=== PATIENT | male | born 1975 | race Caucasian/White ===

== ENCOUNTER 2018-10-03 12:56 | Emergency (ER) | payer OTHER ==
[~2018-10-03] VITALS: Ht 177.8 cm; Wt 99.8 kg
[~2018-10-03 12:56] MED LIST: CITRATE OF MAG296 ML PO; HYDROCODON-ACE1 EACH PO; XANAX XR2 MG
[2018-10-03] MEDS ORDERED: TRAMADOL 50 MG50 MG PO (13:53)
[2018-10-03] MEDS ORDERED: IBUPROFEN 800800 M1 PO (13:53)
[2018-10-03 14:13] VITALS: BP 120/77
== END 2018-10-03 14:14 | disposition home or self-care (01) ==
LOC: M.ERS 12:56
DX: S93.602A Unspecified sprain of left foot, initial encounter (principal); Z88.1 Allergy status to other antibiotic agents; Z88.2 Allergy status to sulfonamides; X50.3XXA Overexertion from repetitive movements, initial encounter; Y93.89 Activity, other specified; Y92.89 Other specified places as the place of occurrence of the external cause; Y99.8 Other external cause status

== ENCOUNTER 2021-06-12 11:04 | Emergency (ER) | payer OTHER ==
[~2021-06-12] VITALS: Ht 175.3 cm; Wt 68.0 kg
[~2021-06-12 11:04] MED LIST changes: +IBUPROFEN 800800 M1 PO; +TRAMADOL 50 MG50 MG PO
[2021-06-12] MEDS ORDERED: ADDERALL XR 1010 MG PO (11:20)
[2021-06-12 11:37] LABS: ABSOLUTE BASOPHILS 0.1 thou/uL (0.0-0.2); ABSOLUTE LYMPHOCYTES 2.6 thou/uL (0.8-5.3); ABSOLUTE MONOCYTES 0.7 thou/uL (0.0-1.2); ABSOLUTE NEUTROPHILS 7.3 thou/uL (1.6-8.1); BASOPHILS 0.6 %; EOSINOPHILS 0.1 %; HEMATOCRIT 43.5 % (42.0-52.0); HEMOGLOBIN 15.3 gm/dL (14.0-18.0); LYMPHOCYTES 24.8 %; MCH 30.3 pg (26.0-34.0); MCHC 35.2 g/dL (28.0-37.0); MONOCYTES 6.3 %; MPV 7.2 fl. (7.2-11.1); NUCLEATED RBCS 0 /100WBC; PLATELET COUNT* 293 thou/uL (150-400); POLYS 68.2 %; RBC 5.06 mil/uL (4.50-6.00); RDW-CV 12.9 % (10.5-14.5); WBC 10.7 thou/uL (4.0-11.0)
[2021-06-12 11:44] LABS: CALCIUM 8.5 mg/dL (8.5-10.1); CREATININE 1.3 mg/dL (0.6-1.3)
[2021-06-12 11:46] LABS: POTASSIUM 2.9 mmol/L (3.5-5.1)
[2021-06-12 11:49] LABS: ALBUMIN 4.2 g/dL (3.4-5.0); TOTAL BILIRUBIN 1.3 mg/dL (<0.1-1.0); TOTAL PROTEIN 7.4 g/dL (6.4-8.2)
[2021-06-12 11:54] LABS: URINE BILIRUBIN NEGATIVE (Negative); URINE BLOOD 1+ (Negative); URINE CLARITY CLEAR; URINE COLOR YELLOW; URINE GLUCOSE-RANDOM NEGATIVE (Negative); URINE KETONES NEGATIVE (Negative); URINE LEUKOCYTES NEGATIVE (Negative); URINE NITRITE NEGATIVE (Negative); URINE PROTEIN NEGATIVE (Negative)
[2021-06-12 12:01] LABS: AMP/METHAMP POSITIVE (Negative); BARBITURATES Negative (Negative); BENZODIAZEPINES POSITIVE (Negative); COCAINE Negative (Negative); METHADONE Negative (Negative); OPIATES Negative (Negative); PCP Negative (Negative); THC POSITIVE (Negative)
[2021-06-12 12:02] LABS: ALCOHOL < 10 mg/dL (<10)
[2021-06-12 12:03] LABS: ACETAMINOPHEN < 2 ug/mL (10-30); SALICYLATE < 2.8 mg/dL (2.8-20.0)
[2021-06-12 12:03] LABS: BACTERIA None Seen /HPF (None Seen); CASTS None Seen /LPF (None Seen); SQUAMOUS 0-3 Few /LPF (0-3); URINE RBC 3-10 Few /HPF (0-2); URINE WBC None Seen /HPF (0-5)
[2021-06-12 12:04] LABS: CRYSTALS None Seen /LPF (None Seen)
[2021-06-12 14:05] VITALS: BP 125/72
--- NOTE | 2021-06-13 11:14 | EKG ---
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
== END 2021-06-12 14:08 | disposition home or self-care (01) ==
LOC: M.ERS 11:04
PROVIDERS: Student in an Organized Health Care Education/Training Program
DX: R53.1 Weakness (principal); R42 Dizziness and giddiness; E87.6 Hypokalemia; R63.4 Abnormal weight loss; R45.4 Irritability and anger; R51.9 Headache, unspecified; Z79.899 Other long term (current) drug therapy; Z88.1 Allergy status to other antibiotic agents; Z88.2 Allergy status to sulfonamides